=== PATIENT | male | born 1970 | race Caucasian/White ===

== ENCOUNTER 2019-12-23 15:19 | Inpatient (IN) | payer MEDICAID ==
[~2019-12-23] VITALS: Ht 172.7 cm; Wt 137.0 kg
[~2019-12-23 15:19] MED LIST: AMIODARONE 50 MG/ML, 3ML ONE; CALCIUM CHLORIDE 10%, 10ML SYR ONE; DEXTROSE 50%, 50ML SYRINGE ONE
[2019-12-23] MEDS ORDERED: CALCIUM CHLORIDE 10%, 10ML SYR IVPush ONE (15:30)
[2019-12-23] MEDS ORDERED: AMIODARONE 150 MG in DEXTROSE 5% 100 ML IV ONE (15:30)
[2019-12-23] MEDS ORDERED: INSULIN REGULAR 100 UNITS/ML, 3ML VIAL IVPush ONE (15:30)
[2019-12-23] MEDS ORDERED: DEXTROSE 50%, 50ML SYRINGE IVPush ONE (15:30)
[2019-12-23] MEDS ORDERED: INSULIN SINGLE DOSE, ER ONE (15:32)
--- NOTE | 2019-12-23 15:55 | NUR ---
graphic art technician [facility] aware of STAT ECHO ordered by Dr. Bell.
[2019-12-23 16:00] LABS: BASOPHILS # (AUTO) 0.06 x10^3/uL (0-0.1); BASOPHILS % (AUTO) 0 % (0-1); EOSINOPHILS # (AUTO) 0.03 x10^3/uL (0-0.4); EOSINOPHILS % (AUTO) 0 % (1-7); LYMPHOCYTES # (AUTO) 1.71 x10^3/uL (1-3.4); LYMPHOCYTES % (AUTO) 13 % (22-44); MD NO; MEAN CORPUSCULAR HEMOGLOBIN 30.6 pg (27.5-34.5); MEAN CORPUSCULAR VOLUME 92.6 fL (81-97); MONOCYTES # (AUTO) 0.31 x10^3/uL (0.2-0.8); MONOCYTES % (AUTO) 2 % (2-9); NEUTROPHILS # (AUTO) 11.11 x10^3/uL (1.8-6.8); NEUTROPHILS % (AUTO) 84 % (42-75); PLATELET COUNT 443 x10^3/uL (130-400); RED BLOOD COUNT 5.03 x10^6/uL (4.38-5.82); RED CELL DISTRIBUTION WIDTH 14.3 % (9.4-14.8)
[2019-12-23] MEDS ORDERED: PLEASE ENTER HEIGHT AND WEIGHT MC SCH (16:00)
[2019-12-23] MEDS ORDERED: PLEASE ENTER ALLERGIES MC SCH (16:00)
--- NOTE | 2019-12-23 16:00 | NUR ---
PT TRANSFERRED FROM [facility] FOR CARDIAC CONSULT. PT ARRIVED AT THEIR FACILITY IN [facility]. PT WAS CARDIOVERTED X2 WITHOUT SUCCESS. PT ARRIVED ON AMIO DRIP AT 33.3 ML/HR. , 2 RN AND TECH IN ROOM UPON ARRIVAL. EKG COMPLETED, AMIO RESTARTED THROUGH CENTRAL LINE IN RIGHT IJ. ADDITIONAL MEDS GIVEN PER EMAR. CARDIOLOGY CONSULTED PT, REQUESTED ECHO BE DONE IN ER. PT A&OX4, COMPLAINING OF ONLY EPIGASTRIC PAIN AND LEFT SHOULDER PAIN WHERE AN IO WAS PLACED AT THE PREVIOUS FACILITY.
[2019-12-23 16:12] LABS: ALBUMIN 3.5 g/dL (3.4-5.0); ANION GAP 5 mmol/L (5-15); CALCIUM 11.6 mg/dL (8.5-10.1); CHLORIDE 104 mmol/L (98-107); CREATININE 1.42 mg/dL (0.7-1.3)
[2019-12-23 16:16] LABS: TROPONIN I < 0.015 ng/mL (0.000-0.045)
[2019-12-23] MEDS ORDERED: AMIODARONE 450 MG in DEXTROSE 5% 241 ML IV PRN ×2 (16:30→21:00)
[2019-12-23] MEDS ORDERED: FILTER 0.22 MICRON IV SCH ×2 (16:30)
--- NOTE | 2019-12-23 16:34 | NUR ---
CLARIFIED AMIO ORDER WITH MD. 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
[2019-12-23] MEDS ORDERED: MORPHINE SULFATE 4 MG/ML, 1ML ONE (17:10)
--- NOTE | 2019-12-23 17:18 | NUR ---
KJ AT BEDSIDE WITH ULTRASOUND.
--- NOTE | 2019-12-23 17:28 | NUR ---
Task RN note: Pt completely undressed. Cath consent signed. Pt to CT via gurney at this time.
[2019-12-23] MEDS ORDERED: MORPHINE SULFATE 4 MG/ML, 1ML IVPush PRN (17:30)
[2019-12-23] MEDS ORDERED: LIDOCAINE 2%, 20ML ONE (17:49)
[2019-12-23] MEDS ORDERED: TICAGRELOR 90 MG TABLET ONE (17:49)
[2019-12-23] MEDS ORDERED: FENTANYL PF 100 MCG/2ML ONE (17:49)
[2019-12-23] MEDS ORDERED: MIDAZOLAM 1 MG/ML, 5ML ONE ×2 (17:49)
[2019-12-23] MEDS ORDERED: VERAPAMIL 2.5 MG/ML, 2ML ONE (17:50)
[2019-12-23] MEDS ORDERED: LIDOCAINE-MPF 1%, 5ML ONE (17:50)
[2019-12-23] MEDS ORDERED: BIVALIRUDIN 250 MG ONE (17:50)
[2019-12-23] MEDS ORDERED: HEPARIN 1,000 UNITS/ML, 10ML ONE (17:50)
[2019-12-23] MEDS ORDERED: OMNIPAQUE 350 MG/ML, 150 ML BOTTLE ONE (17:51)
[2019-12-23] MEDS ORDERED: SODIUM CHLORIDE 0.9% 1,000 ML IV SCH (18:25)
[2019-12-23] MEDS ORDERED: DIPHENHYDRAMINE 25 MG CAPSULE PO PRN (20:30)
[2019-12-23] MEDS ORDERED: ACETAMINOPHEN 325 MG TABLET PO PRN (20:30)
[2019-12-23] MEDS ORDERED: hydrALAzine 20 MG/ML, 1ML IVPush PRN (20:30)
[2019-12-23] MEDS ORDERED: POLYETHYLENE GLYCOL 17 GM PACKET PO PRN (20:30)
[2019-12-23] MEDS ORDERED: PROMETHAZINE 25 MG/ML, 1ML IM PRN (20:30)
[2019-12-23] MEDS ORDERED: ONDANSETRON 2MG/ML, 2ML IVPush PRN (20:30)
[2019-12-23] MEDS ORDERED: BISACODYL 10 MG SUPP PR PRN (20:30)
[2019-12-23] MEDS ORDERED: MELATONIN 5 MG TABLET PO PRN (20:30)
[2019-12-23] MEDS: MORPHINE SULFATE 4 MG/ML, 1ML IV PRN (20:40)
[2019-12-23] MEDS: NICOTINE 14MG/24 HR PATCH.TD24 TD SCH (20:41)
[2019-12-23] MEDS ORDERED: FILTER 0.22 MICRON FOR AMIODARONE IV PRN (21:00)
[2019-12-23] MEDS: INSULIN LISPRO 100 UNITS/ML, PEN SQ-INSULIN SCH (21:18)
[2019-12-23] MEDS: INSULIN GLARGINE 100 UNITS/ML, PEN SQ-INSULIN SCH (21:18)
[2019-12-23 21:53] LABS: MICROSCOPIC NOT IND
[2019-12-23 22:03] LABS: TROPONIN I < 0.015 ng/mL (0.000-0.045)
[2019-12-24 00:09] VITALS: BP 114/73
[2019-12-24] MEDS: MORPHINE SULFATE 4 MG/ML, 1ML IV PRN ×3 (00:22→20:54)
[2019-12-24 04:08] LABS: BASOPHILS % (AUTO) 1 % (0-1); EOSINOPHILS # (AUTO) 0.26 x10^3/uL (0-0.4); EOSINOPHILS % (AUTO) 2 % (1-7); LYMPHOCYTES # (AUTO) 3.87 x10^3/uL (1-3.4); LYMPHOCYTES % (AUTO) 26 % (22-44); MD NO; MEAN CORPUSCULAR HEMOGLOBIN 30.2 pg (27.5-34.5); MEAN CORPUSCULAR HGB CONC 32.8 g/dL (33.2-36.2); MEAN CORPUSCULAR VOLUME 92.1 fL (81-97); MEAN PLATELET VOLUME 7.2 fL (7.4-10.4); MONOCYTES # (AUTO) 0.94 x10^3/uL (0.2-0.8); MONOCYTES % (AUTO) 6 % (2-9); NEUTROPHILS # (AUTO) 9.63 x10^3/uL (1.8-6.8); NEUTROPHILS % (AUTO) 65 % (42-75); PLATELET COUNT 373 x10^3/uL (130-400); RED BLOOD COUNT 4.77 x10^6/uL (4.38-5.82); RED CELL DISTRIBUTION WIDTH 13.8 % (9.4-14.8)
[2019-12-24 04:21] LABS: ALBUMIN 3.1 g/dL (3.4-5.0); ANION GAP 4 mmol/L (5-15); CALCIUM 8.8 mg/dL (8.5-10.1); CHLORIDE 99 mmol/L (98-107)
[2019-12-24 04:24] LABS: ALANINE AMINOTRANSFERASE 32 U/L (12-78); BILIRUBIN,TOTAL 0.7 mg/dL (0.2-1.0); CHOLESTEROL, TOTAL 201 mg/dL (140-239); CREATININE 0.99 mg/dL (0.7-1.3); TOTAL PROTEIN 7.1 g/dL (6.4-8.2); TRIGLYCERIDES 437 mg/dL (50-200); TROPONIN I < 0.015 ng/mL (0.000-0.045)
[2019-12-24 04:40] LABS: ALKALINE PHOSPHATASE 78 U/L (45-117); CHOL/HDL RATIO 7.2; HDL CHOL % 14 % (26-37); HDL CHOLESTEROL (DIRECT) 28 mg/dL (40-60)
[2019-12-24] MEDS ORDERED: MAGNESIUM SULFATE PMX 2GM/50ML 50 ML IV ONE (05:00)
[2019-12-24] MEDS ORDERED: PANTOPRAZOLE 40MG TABLET PO SCH (06:00)
[2019-12-24 07:17] VITALS: BP 124/80
[2019-12-24] MEDS: PANTOPRAZOLE 40MG TABLET PO SCH (08:30)
[2019-12-24] MEDS: INSULIN LISPRO 100 UNITS/ML, PEN SQ-INSULIN SCH ×4 (08:30→21:12)
[2019-12-24] MEDS: SENNA/DOCUSATE TABLET PO SCH (08:31)
[2019-12-24] MEDS ORDERED: ASPIRIN 81 MG TABLET CHEW PO ONE (09:00)
[2019-12-24] MEDS ORDERED: LISI-170 PO (09:49)
[2019-12-24] MEDS: VERAPAMIL 80MG TABLET PO SCH ×3 (10:53→21:01)
[2019-12-24 12:26] VITALS: BP 128/90
[2019-12-24] MEDS ORDERED: HYDR25CA94 PO (12:45)
[2019-12-24] MEDS ORDERED: BACL-19 PO (12:45)
[2019-12-24] MEDS ORDERED: METF500T17 PO (12:45)
[2019-12-24] MEDS ORDERED: LOVA10TA PO (12:45)
[2019-12-24] MEDS ORDERED: INSU100I28 IM (12:45)
[2019-12-24] MEDS ORDERED: CARV3.1212 PO (12:45)
[2019-12-24] MEDS ORDERED: OMEP-110 PO (12:45)
[2019-12-24 20:56] VITALS: BP 121/77
[2019-12-24] MEDS: NICOTINE 14MG/24 HR PATCH.TD24 TD SCH (21:01)
[2019-12-24] MEDS: LOVASTATIN 10 MG TABLET PO SCH (21:01)
[2019-12-24] MEDS: INSULIN GLARGINE 100 UNITS/ML, PEN SQ-INSULIN SCH (21:12)
[2019-12-24 21:42] VITALS: BP 126/83
[2019-12-24 22:22] LABS: ANION GAP 4 mmol/L (5-15); CALCIUM 8.5 mg/dL (8.5-10.1); CHLORIDE 100 mmol/L (98-107); CREATININE 0.84 mg/dL (0.7-1.3)
[2019-12-24] MEDS ORDERED: MAGNESIUM SULFATE PMX 2GM/50ML 50 ML IV STA (22:39)
[2019-12-25 01:22] VITALS: BP 114/80
[2019-12-25] MEDS: MORPHINE SULFATE 4 MG/ML, 1ML IV PRN ×2 (01:56→12:08)
[2019-12-25 02:08] LABS: ANION GAP 3 mmol/L (5-15); CALCIUM 8.4 mg/dL (8.5-10.1); CHLORIDE 101 mmol/L (98-107); CREATININE 0.83 mg/dL (0.7-1.3)
[2019-12-25 07:02] VITALS: BP 157/99
[2019-12-25] MEDS: VERAPAMIL 80MG TABLET PO SCH (08:09)
[2019-12-25] MEDS: PANTOPRAZOLE 40MG TABLET PO SCH (08:09)
[2019-12-25] MEDS: SENNA/DOCUSATE TABLET PO SCH (08:10)
[2019-12-25] MEDS: INSULIN LISPRO 100 UNITS/ML, PEN SQ-INSULIN SCH ×4 (08:22→20:42)
[2019-12-25 12:17] VITALS: BP 119/84
[2019-12-25] MEDS: OXYcodone/APAP 5/325MG TABLET PO PRN ×3 (15:37→22:03)
[2019-12-25 16:55] LABS: ANION GAP 7 mmol/L (5-15); CALCIUM 8.7 mg/dL (8.5-10.1); CHLORIDE 100 mmol/L (98-107); CREATININE 0.87 mg/dL (0.7-1.3)
[2019-12-25] MEDS ORDERED: metFORMIN 500 MG TABLET PO SCH (17:00)
[2019-12-25] MEDS ORDERED: SODIUM CHLORIDE 0.9% 1,000 ML IV SCH (17:47)
[2019-12-25] MEDS ORDERED: DILTIAZEM 125 MG in SODIUM CHLORIDE 0.9% 100 ML IV SCH (18:00)
[2019-12-25] MEDS ORDERED: MAGNESIUM SULFATE PMX 2GM/50ML 50 ML IV ONE (18:00)
[2019-12-25 18:47] VITALS: BP 121/83
[2019-12-25] MEDS: NICOTINE 14MG/24 HR PATCH.TD24 TD SCH (20:40)
[2019-12-25] MEDS: LOVASTATIN 10 MG TABLET PO SCH (20:40)
[2019-12-25] MEDS: INSULIN GLARGINE 100 UNITS/ML, PEN SQ-INSULIN SCH (20:42)
[2019-12-26 00:15] VITALS: BP 129/100
[2019-12-26] MEDS ORDERED: MORPHINE SULFATE 4 MG/ML, 1ML IVPush ONE (00:30)
[2019-12-26] MEDS ORDERED: DILTIAZEM 125 MG in SODIUM CHLORIDE 0.9% 100 ML IV PRN (03:00)
[2019-12-26 06:43] LABS: BASOPHILS # (AUTO) 0.08 x10^3/uL (0-0.1); BASOPHILS % (AUTO) 1 % (0-1); EOSINOPHILS # (AUTO) 0.33 x10^3/uL (0-0.4); EOSINOPHILS % (AUTO) 3 % (1-7); LYMPHOCYTES # (AUTO) 2.61 x10^3/uL (1-3.4); LYMPHOCYTES % (AUTO) 25 % (22-44); MD NO; MEAN CORPUSCULAR HEMOGLOBIN 30.7 pg (27.5-34.5); MEAN CORPUSCULAR HGB CONC 33.4 g/dL (33.2-36.2); MEAN CORPUSCULAR VOLUME 91.8 fL (81-97); MEAN PLATELET VOLUME 7.1 fL (7.4-10.4); MONOCYTES % (AUTO) 8 % (2-9); NEUTROPHILS # (AUTO) 6.42 x10^3/uL (1.8-6.8); NEUTROPHILS % (AUTO) 63 % (42-75); PLATELET COUNT 382 x10^3/uL (130-400); RED BLOOD COUNT 4.74 x10^6/uL (4.38-5.82); RED CELL DISTRIBUTION WIDTH 14.2 % (9.4-14.8)
[2019-12-26 06:47] LABS: CHLORIDE 102 mmol/L (98-107)
[2019-12-26 06:53] LABS: ANION GAP 5 mmol/L (5-15); CALCIUM 8.6 mg/dL (8.5-10.1); CREATININE 0.79 mg/dL (0.7-1.3)
[2019-12-26] MEDS: INSULIN LISPRO 100 UNITS/ML, PEN SQ-INSULIN SCH ×4 (07:00→21:00)
[2019-12-26] MEDS: PANTOPRAZOLE 40MG TABLET PO SCH (08:08)
[2019-12-26] MEDS: LISINOPRIL 20 MG TABLET PO SCH (08:08)
[2019-12-26] MEDS: SENNA/DOCUSATE TABLET PO SCH (08:08)
[2019-12-26] MEDS: OXYcodone/APAP 5/325MG TABLET PO PRN ×2 (08:18→20:40)
[2019-12-26] MEDS: metFORMIN 500 MG TABLET PO SCH ×2 (08:18→16:56)
[2019-12-26 08:20] VITALS: BP 132/88
[2019-12-26 13:05] VITALS: BP 117/72
[2019-12-26] MEDS ORDERED: LORazepam 2 MG/ML, 1ML IVPush ONE (15:30)
[2019-12-26] MEDS: NICOTINE 14MG/24 HR PATCH.TD24 TD SCH (20:39)
[2019-12-26] MEDS: LOVASTATIN 10 MG TABLET PO SCH (20:39)
[2019-12-26 20:44] VITALS: BP 112/73
[2019-12-26] MEDS ORDERED: KETOROLAC 30 MG/1 ML IVPush ONE (21:00)
[2019-12-26] MEDS: INSULIN GLARGINE 100 UNITS/ML, PEN SQ-INSULIN SCH (21:10)
[2019-12-27 05:29] VITALS: BP 124/81
[2019-12-27 05:54] LABS: BASOPHILS # (AUTO) 0.05 x10^3/uL (0-0.1); BASOPHILS % (AUTO) 1 % (0-1); EOSINOPHILS # (AUTO) 0.28 x10^3/uL (0-0.4); EOSINOPHILS % (AUTO) 3 % (1-7); LYMPHOCYTES # (AUTO) 2.69 x10^3/uL (1-3.4); LYMPHOCYTES % (AUTO) 30 % (22-44); MD NO; MEAN CORPUSCULAR HEMOGLOBIN 30.4 pg (27.5-34.5); MEAN CORPUSCULAR HGB CONC 33.2 g/dL (33.2-36.2); MEAN CORPUSCULAR VOLUME 91.7 fL (81-97); MEAN PLATELET VOLUME 7.2 fL (7.4-10.4); MONOCYTES # (AUTO) 0.59 x10^3/uL (0.2-0.8); MONOCYTES % (AUTO) 7 % (2-9); NEUTROPHILS # (AUTO) 5.46 x10^3/uL (1.8-6.8); NEUTROPHILS % (AUTO) 60 % (42-75); PLATELET COUNT 395 x10^3/uL (130-400); RED BLOOD COUNT 4.74 x10^6/uL (4.38-5.82); RED CELL DISTRIBUTION WIDTH 14.3 % (9.4-14.8)
[2019-12-27 06:13] LABS: CHLORIDE 103 mmol/L (98-107)
[2019-12-27 06:31] LABS: ANION GAP 7 mmol/L (5-15); CALCIUM 8.5 mg/dL (8.5-10.1)
[2019-12-27] MEDS: INSULIN LISPRO 100 UNITS/ML, PEN SQ-INSULIN SCH ×4 (07:00→21:27)
[2019-12-27 07:13] VITALS: BP 124/85
[2019-12-27] MEDS: LISINOPRIL 20 MG TABLET PO SCH (08:52)
[2019-12-27] MEDS: metFORMIN 500 MG TABLET PO SCH ×2 (08:52→18:48)
[2019-12-27] MEDS: SENNA/DOCUSATE TABLET PO SCH (08:52)
[2019-12-27] MEDS: PANTOPRAZOLE 40MG TABLET PO SCH (08:53)
[2019-12-27] MEDS: OXYcodone/APAP 5/325MG TABLET PO PRN (09:17)
[2019-12-27] MEDS ORDERED: MORPHINE SULFATE 4 MG/ML, 1ML IVPush ONE (10:00)
[2019-12-27] MEDS ORDERED: SODIUM CHLORIDE 0.9% 1,000 ML IV SCH (10:00)
[2019-12-27] MEDS ORDERED: FENTANYL PF 250 MCG/5ML ONE (10:56)
[2019-12-27] MEDS ORDERED: MIDAZOLAM 1 MG/ML, 2ML ONE (10:56)
[2019-12-27] MEDS ORDERED: LIDOCAINE 2%, 20ML ONE (12:54)
[2019-12-27 12:58] VITALS: BP 129/90
[2019-12-27] MEDS ORDERED: OXYcodone 5 MG/5 ML ORAL.SOL UDC PO PRN (13:30)
[2019-12-27] MEDS ORDERED: ACETAMINOPHEN 325 MG TABLET PO PRN (13:30)
[2019-12-27] MEDS ORDERED: LABETALOL 5MG/ML, 20ML IV PRN (13:30)
[2019-12-27] MEDS ORDERED: HYDROmorphone 1 MG/ML, 1ML INJ IVPush PRN (13:30)
[2019-12-27] MEDS ORDERED: PROMETHAZINE 25 MG/ML, 1ML IVPush PRN (13:30)
[2019-12-27] MEDS ORDERED: MEPERIDINE/PF 25MG/0.5ML IVPush PRN (13:30)
[2019-12-27] MEDS ORDERED: hydrALAzine 20 MG/ML, 1ML IV PRN (13:30)
[2019-12-27] MEDS ORDERED: EPHEDRINE 50 MG/ML, 1ML IVPush PRN (13:30)
[2019-12-27] MEDS ORDERED: ONDANSETRON 2MG/ML, 2ML IVPush PRN (13:30)
[2019-12-27] MEDS ORDERED: ROCURONIUM 10MG/ML,5ML ONE (14:09)
[2019-12-27] MEDS ORDERED: DEXAMETHASONE 4 MG/ML, 1ML ONE (14:09)
[2019-12-27] MEDS ORDERED: SUCCINYLCHOLINE 20 MG/ML, 10ML ONE (14:09)
[2019-12-27] MEDS ORDERED: ONDANSETRON 2MG/ML, 2ML ONE (14:09)
[2019-12-27] MEDS ORDERED: SUGAMMADEX 200 MG/2 ML IVPush ONE (14:09)
[2019-12-27] MEDS ORDERED: PROPOFOL 10 MG/ML, 20ML ONE (14:09)
[2019-12-27] MEDS ORDERED: PHENYLEPHRINE 10 MG/ML ONE ×2 (14:18→16:00)
[2019-12-27] MEDS ORDERED: HEPARIN 1,000 UNITS/ML, 10ML ONE ×3 (15:33)
[2019-12-27] MEDS ORDERED: ALBUTEROL HFA 90 MCG/SPRAY ONE (15:44)
[2019-12-27] MEDS ORDERED: METOPROLOL 1 MG/ML, 5ML ONE ×2 (15:55→15:59)
[2019-12-27] MEDS ORDERED: PROTAMINE SULFATE 10 MG/ML, 5ML ONE (16:07)
[2019-12-27] MEDS ORDERED: FENTANYL PF 100 MCG/2ML ONE (16:26)
[2019-12-27] MEDS ORDERED: OXYcodone 5 MG/5 ML ORAL.SOL UDC ONE (16:26)
[2019-12-27] MEDS: FENTANYL PF 100 MCG/2ML IV PRN ×2 (16:36→17:00)
[2019-12-27] MEDS ORDERED: DEXMEDETOMIDINE 200 MCG/2 ML ONE (16:40)
[2019-12-27] MEDS ORDERED: HYDROmorphone 1 MG/ML, 1ML INJ ONE (17:38)
[2019-12-27] MEDS: METOPROLOL SUCCINATE 25 MG TAB.ER.24H PO SCH (18:48)
[2019-12-27] MEDS ORDERED: HYDROmorphone 1 MG/ML, 1ML INJ IM PRN (19:00)
[2019-12-27 19:53] VITALS: BP 141/85
[2019-12-27] MEDS: NICOTINE 14MG/24 HR PATCH.TD24 TD SCH (21:25)
[2019-12-27] MEDS: INSULIN GLARGINE 100 UNITS/ML, PEN SQ-INSULIN SCH (21:27)
[2019-12-27] MEDS: LOVASTATIN 10 MG TABLET PO SCH (21:28)
[2019-12-27] MEDS: HYDROmorphone 2 MG/ML, 1ML IVPush PRN (22:01)
[2019-12-28] MEDS ORDERED: HYDROmorphone 2 MG/ML, 1ML IVPush PRN (01:00)
[2019-12-28 01:59] VITALS: BP 137/87
[2019-12-28] MEDS: HYDROmorphone 2 MG/ML, 1ML IVPush PRN ×2 (04:46→10:58)
[2019-12-28 05:01] LABS: BASOPHILS # (AUTO) 0.03 x10^3/uL (0-0.1); BASOPHILS % (AUTO) 0 % (0-1); EOSINOPHILS % (AUTO) 0 % (1-7); LYMPHOCYTES # (AUTO) 1.83 x10^3/uL (1-3.4); LYMPHOCYTES % (AUTO) 11 % (22-44); MD NO; MEAN CORPUSCULAR HEMOGLOBIN 30.4 pg (27.5-34.5); MEAN CORPUSCULAR HGB CONC 32.9 g/dL (33.2-36.2); MEAN CORPUSCULAR VOLUME 92.1 fL (81-97); MEAN PLATELET VOLUME 7.1 fL (7.4-10.4); MONOCYTES # (AUTO) 0.66 x10^3/uL (0.2-0.8); MONOCYTES % (AUTO) 4 % (2-9); NEUTROPHILS # (AUTO) 14.95 x10^3/uL (1.8-6.8); NEUTROPHILS % (AUTO) 86 % (42-75); PLATELET COUNT 436 x10^3/uL (130-400); RED BLOOD COUNT 4.52 x10^6/uL (4.38-5.82); RED CELL DISTRIBUTION WIDTH 14.2 % (9.4-14.8)
[2019-12-28 05:09] LABS: CALCIUM 8.7 mg/dL (8.5-10.1); CHLORIDE 100 mmol/L (98-107)
[2019-12-28 05:13] LABS: ANION GAP 8 mmol/L (5-15)
[2019-12-28 06:18] VITALS: BP 125/82
[2019-12-28] MEDS: METOPROLOL SUCCINATE 25 MG TAB.ER.24H PO SCH (06:20)
[2019-12-28 07:22] VITALS: BP 130/86
[2019-12-28] MEDS: INSULIN LISPRO 100 UNITS/ML, PEN SQ-INSULIN SCH ×2 (08:34→11:00)
[2019-12-28] MEDS: PANTOPRAZOLE 40MG TABLET PO SCH (08:35)
[2019-12-28] MEDS: SENNA/DOCUSATE TABLET PO SCH (08:35)
[2019-12-28] MEDS: LISINOPRIL 20 MG TABLET PO SCH (08:35)
[2019-12-28] MEDS: metFORMIN 500 MG TABLET PO SCH (09:35)
[2019-12-28 12:12] VITALS: BP 123/86
[2019-12-28] MEDS ORDERED: METO-93 PO (12:33)
[2019-12-28 14:23] LABS: MEAN CORPUSCULAR HEMOGLOBIN 30.6 pg (27.5-34.5); MEAN CORPUSCULAR HGB CONC 33.1 g/dL (33.2-36.2); MEAN CORPUSCULAR VOLUME 92.4 fL (81-97); MEAN PLATELET VOLUME 7.4 fL (7.4-10.4); PLATELET COUNT 406 x10^3/uL (130-400); RED BLOOD COUNT 4.59 x10^6/uL (4.38-5.82); RED CELL DISTRIBUTION WIDTH 14.1 % (9.4-14.8)
[2019-12-28 14:57] LABS: BASOPHILS # (AUTO) 0.11 x10^3/uL (0-0.1); BASOPHILS % (AUTO) 1 % (0-1); EOSINOPHILS # (AUTO) 0.06 x10^3/uL (0-0.4); EOSINOPHILS % (AUTO) 0 % (1-7); LYMPHOCYTES # (AUTO) 3.71 x10^3/uL (1-3.4); LYMPHOCYTES % (AUTO) 18 % (22-44); MD SCAN; MONOCYTES # (AUTO) 1.48 x10^3/uL (0.2-0.8); MONOCYTES % (AUTO) 7 % (2-9); NEUTROPHILS # (AUTO) 15.06 x10^3/uL (1.8-6.8); NEUTROPHILS % (AUTO) 74 % (42-75)
[2019-12-29] MEDS ORDERED: METOPROLOL SUCCINATE 50 MG TAB.ER.24H PO SCH (06:00)
== END 2019-12-28 17:06 | disposition home or self-care (01) | DRG 175 ==
LOC: ED 18:00 → INTOOBSV 18:39 → EDIP 18:39 → OBSVTOIN 18:39 → 5SO 19:03
PROVIDERS: ADMIT Internal Medicine Cardiovascular Disease; ATTEND Hospitalist
PROC: 4A023N7 Measurement of Cardiac Sampling and Pressure, Left Heart, Percutaneous Approach (ICD-10-PCS; principal; 2019-12-23)
PROC: B2111ZZ Fluoroscopy of Multiple Coronary Arteries using Low Osmolar Contrast (ICD-10-PCS; 2019-12-23)
PROC: 02583ZZ Destruction of Conduction Mechanism, Percutaneous Approach (ICD-10-PCS; 2019-12-27)
PROC: 5A2204Z Restoration of Cardiac Rhythm, Single (ICD-10-PCS; 2019-12-27)
PROC: 4A0234Z Measurement of Cardiac Electrical Activity, Percutaneous Approach (ICD-10-PCS; 2019-12-27)
DX: I47.2 Ventricular tachycardia (principal); I10 Essential (primary) hypertension; E78.5 Hyperlipidemia, unspecified; E11.9 Type 2 diabetes mellitus without complications; E87.5 Hyperkalemia; I35.0 Nonrheumatic aortic (valve) stenosis; F17.210 Nicotine dependence, cigarettes, uncomplicated; N17.9 Acute kidney failure, unspecified; E66.9 Obesity, unspecified; Z68.41 Body mass index [BMI] 40.0-44.9, adult; D72.829 Elevated white blood cell count, unspecified; R32 Unspecified urinary incontinence; K64.9 Unspecified hemorrhoids; F41.9 Anxiety disorder, unspecified; J98.11 Atelectasis; K76.0 Fatty (change of) liver, not elsewhere classified
CPT/HCPCS: J3490 ×2; 36415; 71045; 74177; 80048; 80053; 80061; 81003; 82040; 82962; 83036; 83690; 83735; 84100; 84443; 84484; 85025; 85347; 86850; 86900; 87635; 93005; 93306; 93458; 93622; 93654; 99156; 99157; C1732; C1769; C1894; C8929; G0378; J0583; J1100; J1170; J1644; J1815; J1885; J2250; J2405; J2704; J2720; J3010; J7060; Q9967; C1730; J0282; J0330; J2060; J2270; J2370; J3475